=== PATIENT | female | born 1985 | race Caucasian/White ===

== ENCOUNTER 2022-04-10 14:04 | Outpatient (CLI) | payer OTHER, SELFPAY ==
[2022-04-10 14:46] LABS: Vitamin D 25 Hydroxy* 27 ng/mL (30-80)
[2022-04-10 15:04] LABS: Ferritin* 86.5 ng/mL (6.24-137.0)
[2022-04-10 15:40] LABS: Vitamin B12* 269 pg/mL (243-894)
== END 2022-04-10 14:05 | disposition home or self-care (01) ==
PROVIDERS: PCP Physician Assistant Medical; Visit Provider Physician Assistant Medical
DX: R53.83 Other fatigue (principal)
CPT/HCPCS: 82306; 82607; 82728; 84443

== ENCOUNTER 2022-08-20 10:14 | Outpatient (CLI) | payer OTHER, BC, SELFPAY | END 2022-08-20 10:15 | disposition home or self-care (01) | PROVIDERS: PCP Physician Assistant Medical; Visit Provider Physician Assistant | DX: N75.1 Abscess of Bartholin's gland (principal); E66.9 Obesity, unspecified | CPT/HCPCS: 0353U; 83001; 87070; 87186; 87491; 87591 ==

== ENCOUNTER 2023-11-04 07:04 | Outpatient (CLI) | payer BC, SELFPAY ==
--- NOTE | 2023-11-04 07:15 | CRLHL7_ITS ---
For Patients: As a result of the Century Cures Act, medical imaging exams and procedure reports are released immediately into your electronic medical record. You may view this report before your referring provider. If you have questions, please contact your health care provider. DUPLEX ARTERIAL ULTRASOUND BILATERAL LOWER EXTREMITIES CLINICAL HISTORY: Lower extremity swelling with exercise. COMPARISON: None. TECHNIQUE: The bilateral lower extremity arteries were examined per exam specific protocol with freeman-scale ultrasound, color-flow and Doppler spectral analysis. Peak systolic velocities (PSV), Doppler waveform quality and velocity ratios, if applicable, were documented at sites per exam specific protocol. FINDINGS: RIGHT: PSV (cm/sec). Waveform (T-Tri, B-Bi, M-Slope). PIVOT END POLISHER: 114. T. DFA: 64. T. FA PRX: 71. T. FA MID: 70. T. FA DISTAL: 88. T. POP A: 43. T. JEYSON A: 53. T. CRUSHER ASSEMBLER: 71. T. SVETLANA: 50. T. DPA: 57. T. LEFT: PSV (cm/sec). Waveform (T-Tri, B-Bi, M-Slope). PIVOT END POLISHER: 104. T. DFA: 67. T. FA PRX: 95. T. FA MID: 81. T. FA DISTAL: 63. T. POP A: 43. T. JEYSON A: 47. T. CRUSHER ASSEMBLER: 58. T. SVETLANA: 53. T. DPA: 36. T. Multiphasic waveforms are seen throughout both lower extremity arterial systems. IMPRESSION: Multiphasic waveforms throughout both lower extremity arterial systems. No evidence of hemodynamically-significant stenoses or occlusions. NKECHI BARROSO M.D. Vascular and Interventional Radiology [email or web address] Transcribed: 1:[address]/Dictated by: Nkechi Barroso MD @ 11/04/2023 10:48:00 AM (Electronically Signed)
== END 2023-11-04 07:05 | disposition home or self-care (01) ==
LOC: US 07:04
PROVIDERS: PCP Physician Assistant Medical; Visit Provider Physician Assistant Medical
DX: M79.89 Other specified soft tissue disorders (principal)
CPT/HCPCS: 93926

== ENCOUNTER 2024-04-28 11:04 | Outpatient (CLI) | payer BC, SELFPAY ==
[2024-05-01 02:39] LABS: HPV Source Cervical/Vag; HPV, High Risk by TMA Not Detected
== END 2024-04-28 11:05 | disposition home or self-care (01) ==
PROVIDERS: PCP Physician Assistant Medical; Visit Provider Physician Assistant Medical
DX: Z01.419 Encounter for gynecological examination (general) (routine) without abnormal findings (principal); Z11.59 Encounter for screening for other viral diseases; Z12.4 Encounter for screening for malignant neoplasm of cervix
CPT/HCPCS: 87624; 87625; 88141; 88142

== ENCOUNTER 2024-08-14 14:54 | Outpatient (CLI) | payer BC, SELFPAY ==
--- NOTE | 2024-08-14 15:00 | CRLHL7_ITS ---
For Patients: As a result of the Century Cures Act, medical imaging exams and procedure reports are released immediately into your electronic medical record. You may view this report before your referring provider. If you have questions, please contact your health care provider. BILATERAL SCREENING MAMMOGRAM WITH COMPUTER-AIDED DETECTION AND TOMOSYNTHESIS TECHNIQUE: CC and MLO views were obtained. These mammographic images have been obtained using full-field digital technique. These mammographic images were interpreted with the benefit of computer-aided detection. Breast Tomosynthesis was used in this interpretation. COMPARISON FILM: Baseline. FINDINGS: The breasts are almost entirely fatty. IMPRESSION: There is no radiographic evidence for malignancy. ASSESSMENT: BI-RADS Category 1: Negative RECOMMENDATION: Routine screening mammogram in 1 year. A lay language report of this examination will be provided to the patient. Moe Tafoya M.D. Diagnostic Radiologist [email or web address] SP/Dictated by: Moe Tafoya MD @ 08/17/2024 10:16:00 AM (Electronically Signed)
== END 2024-08-14 14:55 | disposition home or self-care (01) ==
LOC: MAMMO 14:55
PROVIDERS: PCP Physician Assistant Medical; Visit Provider Plastic Surgery
DX: Z12.31 Encounter for screening mammogram for malignant neoplasm of breast (principal)
CPT/HCPCS: 77063; 77067

== ENCOUNTER 2025-02-23 09:21 | Outpatient (CLI) | payer BC, SELFPAY | END 2025-02-23 09:22 | disposition home or self-care (01) | LOC: NFLDREF 03-11 04:09 | PROVIDERS: PCP Physician Assistant Medical; Referring Provider Physician Assistant Medical; Visit Provider Physician Assistant Medical | DX: R39.9 Unspecified symptoms and signs involving the genitourinary system (principal); N30.00 Acute cystitis without hematuria | CPT/HCPCS: 87086 ==